=== PATIENT | female | born 1975 | race Caucasian/White ===

== ENCOUNTER → 2018-11-28 | Outpatient (CLI) | payer OTHER ==
[~2018-11-28] MED LIST: ESTRACE2 MG PO; KLONOPIN 0.5MG0.5 MG PO; LOZOL1.25 MG PO; PRIL40 PO; PRINIVIL10 MG PO; ZOCOR 40MG40 MG PO
== END ==
LOC: COL.RAD 13:01
DX: R51 Headache (principal)
CPT/HCPCS: A9585